=== PATIENT | male | born 1985 | race Caucasian/White ===

== ENCOUNTER → 2016-09-08 | Emergency (ER) | payer MEDICARE, MEDICAID ==
[~2016-09-08] VITALS: Ht 175.3 cm; Wt 68.0 kg
[~2016-09-08] MED LIST: CALCIUM CARBONATE VITAMIN D PO; CLINDAMYCIN 900MG IV 50 ML IV ONE; HYDROmorphone HCL 2 MG/ML VL IV ONE; IOHEXOL 300 MG/ML 100ML BOTTLE IJ ONE; MES400T PO; OMEP20CA5 OR; ONDANSETRON HCL 4 MG/2 ML VIAL IV ONE; PERCOT; PRED-188 PO; SODIUM CHLORIDE 0.9% 1,000 ML IVB ONE
[2016-09-08 13:09] LABS: Basophils # (auto) 0.1 uL; Basophils % (auto) 1.3 % (0.0-2.0); DEFINITIVE VIEW TRANSMISSION; Eosinophils # (auto) 0.2 uL; Eosinophils % (auto) 1.4 % (0.0-7.0); Hematocrit 33.4 % (41.0-53.0); Hemoglobin 9.8 g/dL (13.5-17.5); Lymphocytes # (auto) 1.2 uL; Mean Corpuscular Hemoglobin 20.3 pg (28.0-32.0); Mean Corpuscular Hgb Conc. 29.4 g/dL (32.0-36.0); Mean Corpuscular Volume 69.1 fL (80.0-100.0); Mean Platelet Volume 8.5 fL (7.4-10.4); Monocytes # (auto) 0.4 uL; Monocytes % (auto) 3.7 % (0.0-12.0); Neutrophils # (auto) 9.1 uL; Neutrophils % (auto) 82.6 % (37.0-80.0); Platelet Count (auto) 410 10^3/uL (140-450); Red Cell Distribution Width 15.3 % (11.6-16.0)
[2016-09-08 13:18] LABS: INR 1.04 (0.9-1.15); Partial Thromboplastin Time 25.4 sec (22.64-33.71); Prothrombin Time 10.7 sec (9.37-12.3)
[2016-09-08 13:28] LABS: Albumin 3.4 g/dL (3.4-5.0); BUN/Creatinine Ratio 23.2; Bilirubin, Total 0.3 mg/dL (0.2-1.0); Calcium 8.8 mg/dL (8.5-10.1); Magnesium 1.9 mg/dL (1.6-2.6); Potassium 3.8 mmol/L (3.5-5.1)
[2016-09-08 17:37] VITALS: BP 116/70
== END | disposition home or self-care (01) ==
LOC: ER 12:08
DX: L02.211 Cutaneous abscess of abdominal wall (principal); K51.90 Ulcerative colitis, unspecified, without complications; M19.90 Unspecified osteoarthritis, unspecified site; F17.210 Nicotine dependence, cigarettes, uncomplicated; F12.10 Cannabis abuse, uncomplicated; Z88.1 Allergy status to other antibiotic agents; Z79.899 Other long term (current) drug therapy
CPT/HCPCS: 36415; 74177; 80053; 82150; 83690; 83735; 85025; 85610; 85730; 96361; 96365; 96375; 99285; J1170; J2405; J3490; J7030; Q9967

== ENCOUNTER 2018-02-24 17:29 | Inpatient (IN) | payer MEDICARE, MEDICAID ==
[~2018-02-24] VITALS: Ht 175.3 cm; Wt 69.2 kg
[~2018-02-24 17:29] MED LIST changes: -CLINDAMYCIN 900MG IV 50 ML IV ONE; -HYDROmorphone HCL 2 MG/ML VL IV ONE; -IOHEXOL 300 MG/ML 100ML BOTTLE IJ ONE; -OMEP20CA5 OR; +OMEP20CA74 OR; -ONDANSETRON HCL 4 MG/2 ML VIAL IV ONE; -SODIUM CHLORIDE 0.9% 1,000 ML IVB ONE
[2018-02-24] MEDS ORDERED: SODIUM CHLORIDE 0.9% 1,000 ML IVB ONE (17:55)
[2018-02-24 18:41] LABS: Eosinophils # (auto) 0.1 uL; Eosinophils % (auto) 0.7 % (0.0-7.0); Red Blood Cells 4.22 10^6/uL (4.5-5.90)
[2018-02-24 18:42] LABS: Basophils # (auto) 0.1 uL; Basophils % (auto) 0.6 % (0.0-2.0); Hematocrit 29.3 % (41.0-53.0); Hemoglobin 8.9 g/dL (13.5-17.5); Lymphocytes # (auto) 1.5 uL; Lymphocytes % (auto) 17.2 % (10.0-50.0); Mean Corpuscular Hemoglobin 21.2 pg (28.0-32.0); Mean Corpuscular Hgb Conc. 30.5 g/dL (32.0-36.0); Mean Corpuscular Volume 69.4 fL (80.0-100.0); Monocytes # (auto) 0.7 uL; Monocytes % (auto) 8.2 % (0.0-12.0); Neutrophils # (auto) 6.4 uL; Neutrophils % (auto) 73.3 % (37.0-80.0); Platelet Count (auto) 361 10^3/uL (140-450); Red Cell Distribution Width 18.1 % (11.8-14.3); White Blood Cell 8.7 10^3/uL (4.4-10.8)
[2018-02-24 18:57] LABS: INR 0.99 (0.9-1.15); Partial Thromboplastin Time 30.8 sec (23.78-33.04); Prothrombin Time 10.6 sec (9.27-12.13)
[2018-02-24 19:01] LABS: Albumin 3.1 g/dL (3.4-5.0); BUN/Creatinine Ratio 12.9; Calcium 7.8 mg/dL (8.5-10.1); Potassium 3.5 mmol/L (3.5-5.1)
[2018-02-24 19:03] LABS: Bilirubin, Total 0.6 mg/dL (0.2-1.0); Total Protein 7.2 g/dL (6.4-8.2)
[2018-02-24] MEDS ORDERED: TEMAZEPAM 15 MG CAP PO PRN (21:15)
[2018-02-24] MEDS ORDERED: ACETAMINOPHEN 325 MG TAB PO PRN (21:15)
[2018-02-24] MEDS: MORPHINE SULFATE 4 MG/ML SYR/VIAL IV PRN (22:03)
[2018-02-24] MEDS: MESALAMINE 400mg Delayed Release Cap PO SCH (22:06)
[2018-02-24] MEDS ORDERED: CALAMINE TOPical LOTION180 ML TOP ONE (22:15)
[2018-02-25] MEDS: HYDROcodone-ACET 5/325MG TAB PO PRN (00:46)
[2018-02-25] MEDS: ONDANSETRON HCL 4 MG/2 ML VIAL IV PRN ×4 (05:39→21:03)
[2018-02-25] MEDS: MORPHINE SULFATE 4 MG/ML SYR/VIAL IV PRN ×4 (05:39→21:02)
[2018-02-25 07:35] LABS: Basophils # (auto) 0.1 uL; Basophils % (auto) 0.7 % (0.0-2.0); Eosinophils # (auto) 0.2 uL; Eosinophils % (auto) 2.6 % (0.0-7.0); Hematocrit 34.7 % (41.0-53.0); Hemoglobin 9.6 g/dL (13.5-17.5); Lymphocytes # (auto) 1.2 uL; Lymphocytes % (auto) 16.6 % (10.0-50.0); Mean Corpuscular Hemoglobin 20.6 pg (28.0-32.0); Mean Corpuscular Hgb Conc. 27.7 g/dL (32.0-36.0); Mean Corpuscular Volume 74.3 fL (80.0-100.0); Monocytes # (auto) 0.7 uL; Monocytes % (auto) 9.1 % (0.0-12.0); Neutrophils # (auto) 5.3 uL; Platelet Count (auto) 352 10^3/uL (140-450); Red Blood Cells 4.67 10^6/uL (4.5-5.90); White Blood Cell 7.4 10^3/uL (4.4-10.8)
[2018-02-25 07:59] LABS: Albumin 2.9 g/dL (3.4-5.0); BUN/Creatinine Ratio 12.8; Bilirubin, Total 0.5 mg/dL (0.2-1.0); Potassium 3.8 mmol/L (3.5-5.1); Total Protein 7.1 g/dL (6.4-8.2)
[2018-02-25] MEDS: predniSONE 20 MG TAB PO SCH (10:29)
[2018-02-25] MEDS: MESALAMINE 400mg Delayed Release Cap PO SCH ×2 (10:29→23:55)
[2018-02-25] MEDS: PANTOPRAZOLE 40 MG TAB PO SCH (10:29)
[2018-02-25 14:55] VITALS: BP 131/86
[2018-02-25] MEDS: metroNIDAZOLE 500 MG TAB PO SCH (18:04)
[2018-02-25 22:00] VITALS: BP 133/79
[2018-02-25] MEDS: SILVER SULFADIAZINE 1 % TOPICAL CREAM 50GM TOP SCH (23:56)
[2018-02-26] MEDS: metroNIDAZOLE 500 MG TAB PO SCH ×5 (00:04→23:46)
[2018-02-26] MEDS: ONDANSETRON HCL 4 MG/2 ML VIAL IV PRN ×3 (04:26→20:40)
[2018-02-26] MEDS: MORPHINE SULFATE 4 MG/ML SYR/VIAL IV PRN ×2 (04:27→10:06)
[2018-02-26 05:15] VITALS: BP 131/78
[2018-02-26 07:00] LABS: Basophils # (auto) 0 uL; Eosinophils # (auto) 0 uL; Eosinophils % (auto) 0.3 % (0.0-7.0); Hematocrit 30.8 % (41.0-53.0); Hemoglobin 9.4 g/dL (13.5-17.5); Lymphocytes # (auto) 1.2 uL; Mean Corpuscular Hemoglobin 21.3 pg (28.0-32.0); Monocytes # (auto) 0.8 uL
[2018-02-26 07:03] LABS: Basophils % (auto) 0.1 % (0.0-2.0); Lymphocytes % (auto) 11.3 % (10.0-50.0); Mean Corpuscular Hgb Conc. 30.5 g/dL (32.0-36.0); Mean Corpuscular Volume 69.8 fL (80.0-100.0); Monocytes % (auto) 7.8 % (0.0-12.0); Neutrophils # (auto) 8.3 uL; Neutrophils % (auto) 80.5 % (37.0-80.0); Platelet Count (auto) 339 10^3/uL (140-450); Red Blood Cells 4.41 10^6/uL (4.5-5.90); Red Cell Distribution Width 18.1 % (11.8-14.3); White Blood Cell 10.3 10^3/uL (4.4-10.8)
[2018-02-26 07:13] LABS: BUN/Creatinine Ratio 14.8; Calcium 8.2 mg/dL (8.5-10.1); Potassium 3.8 mmol/L (3.5-5.1)
[2018-02-26 08:01] VITALS: BP 126/73
[2018-02-26] MEDS ORDERED: ONDANSETRON HCL 4 MG/2 ML VIAL ONE (09:37)
[2018-02-26] MEDS ORDERED: MORPHINE SULF INJ 2 MG/ML SYRINGE 1ML ONE (09:43)
[2018-02-26] MEDS: predniSONE 20 MG TAB PO SCH (10:03)
[2018-02-26] MEDS: PANTOPRAZOLE 40 MG TAB PO SCH (10:04)
[2018-02-26] MEDS: SILVER SULFADIAZINE 1 % TOPICAL CREAM 50GM TOP SCH ×2 (10:05→22:09)
[2018-02-26] MEDS: MESALAMINE 400mg Delayed Release Cap PO SCH ×2 (10:25→22:09)
[2018-02-26 11:59] VITALS: BP 127/84
[2018-02-26] MEDS: MORPHINE SULF INJ 2 MG/ML SYRINGE 1ML IV PRN ×2 (15:40→20:40)
[2018-02-26 16:24] VITALS: BP 129/83
[2018-02-26 22:00] VITALS: BP 131/72
[2018-02-27] MEDS: MORPHINE SULF INJ 2 MG/ML SYRINGE 1ML IV PRN ×3 (00:57→11:37)
[2018-02-27 05:00] VITALS: BP 125/67
[2018-02-27] MEDS: metroNIDAZOLE 500 MG TAB PO SCH ×3 (05:31→18:00)
[2018-02-27 08:42] VITALS: BP 139/79
[2018-02-27] MEDS: HYDROcodone-ACET 5/325MG TAB PO PRN ×2 (08:47→15:31)
[2018-02-27] MEDS: predniSONE 20 MG TAB PO SCH (11:20)
[2018-02-27] MEDS: MESALAMINE 400mg Delayed Release Cap PO SCH (11:20)
[2018-02-27] MEDS: PANTOPRAZOLE 40 MG TAB PO SCH (11:21)
[2018-02-27] MEDS: SILVER SULFADIAZINE 1 % TOPICAL CREAM 50GM TOP SCH (11:21)
[2018-02-27] MEDS ORDERED: PANT40T PO (11:26)
[2018-02-27] MEDS ORDERED: PRE5T PO (11:26)
[2018-02-27] MEDS ORDERED: MESA400C PO (11:26)
[2018-02-27 12:28] VITALS: BP 128/71
[2018-02-27 16:44] VITALS: BP 128/71
== END 2018-02-27 19:25 | disposition home or self-care (01) | DRG 386 ==
LOC: ER 17:29 → EDBD 17:29 → OVERFLOW 17:30 → EAST 02-25 14:46
PROVIDERS: ADMIT Nurse Practitioner; ATTEND Internal Medicine
DX: K51.90 Ulcerative colitis, unspecified, without complications (principal); E44.1 Mild protein-calorie malnutrition; D63.8 Anemia in other chronic diseases classified elsewhere; F17.210 Nicotine dependence, cigarettes, uncomplicated; F32.9 Major depressive disorder, single episode, unspecified; F41.9 Anxiety disorder, unspecified; K43.5 Parastomal hernia without obstruction or gangrene; Z82.49 Family history of ischemic heart disease and other diseases of the circulatory system; Z83.3 Family history of diabetes mellitus; Z87.442 Personal history of urinary calculi; Z90.49 Acquired absence of other specified parts of digestive tract; Z91.19 Patient's noncompliance with other medical treatment and regimen; Z93.3 Colostomy status; M19.90 Unspecified osteoarthritis, unspecified site; Z71.6 Tobacco abuse counseling; Z88.1 Allergy status to other antibiotic agents
CPT/HCPCS: 36415; 71045; 74176; 80048; 80053; 83735; 85025; 85610; 85730; 86141; 87045; 87081; 87493; 87899; 94761; 96360; J2405

== ENCOUNTER 2018-03-31 06:25 | Emergency (ER) | payer MEDICARE, MEDICAID ==
[~2018-03-31] VITALS: Ht 175.3 cm; Wt 65.8 kg
[~2018-03-31 06:25] MED LIST changes: +MESA400C PO; +PANT40T PO; +PRE5T PO
[2018-03-31] MEDS ORDERED: SODIUM CHLORIDE 0.9% 1,000 ML IV ONE (07:08)
[2018-03-31] MEDS ORDERED: ONDANSETRON HCL 4 MG/2 ML VIAL IV ONE (07:15)
[2018-03-31] MEDS ORDERED: TETANUS-DIPTH-ACEL PERTUSSIS 0.5ML SYRG IM ONE (07:15)
[2018-03-31] MEDS ORDERED: KETOROLAC TROMETH 30 MG/ML 1ML VIAL IV ONE (07:15)
[2018-03-31 07:43] LABS: Basophils # (auto) 0.1 uL; Eosinophils # (auto) 0.1 uL; Hematocrit 30.1 % (41.0-53.0); Neutrophils # (auto) 5.4 uL; White Blood Cell 7.2 10^3/uL (4.4-10.8)
[2018-03-31 07:46] LABS: Basophils % (auto) 0.7 % (0.0-2.0); Eosinophils % (auto) 1.8 % (0.0-7.0); Hemoglobin 9.1 g/dL (13.5-17.5); Lymphocytes # (auto) 0.8 uL; Lymphocytes % (auto) 11.7 % (10.0-50.0); Mean Corpuscular Hemoglobin 21.1 pg (28.0-32.0); Mean Corpuscular Hgb Conc. 30.2 g/dL (32.0-36.0); Mean Corpuscular Volume 69.9 fL (80.0-100.0); Monocytes # (auto) 0.8 uL; Monocytes % (auto) 10.7 % (0.0-12.0); Neutrophils % (auto) 75.1 % (37.0-80.0); Red Cell Distribution Width 17.2 % (11.8-14.3)
[2018-03-31 08:00] LABS: Albumin 2.9 g/dL (3.4-5.0); BUN/Creatinine Ratio 16.3; Potassium 3.5 mmol/L (3.5-5.1)
[2018-03-31 08:03] LABS: Bilirubin, Total 0.6 mg/dL (0.2-1.0); Total Protein 6.8 g/dL (6.4-8.2)
[2018-03-31 08:09] LABS: Platelet Count (auto) 274 10^3/uL (140-450)
[2018-03-31 08:38] VITALS: BP 135/88
== END 2018-03-31 08:56 | disposition home or self-care (01) ==
LOC: EDBD 06:25 → ER 06:30
DX: S02.2XXA Fracture of nasal bones, initial encounter for closed fracture (principal); S02.652A Fracture of angle of left mandible, initial encounter for closed fracture; S06.9X0A Unspecified intracranial injury without loss of consciousness, initial encounter; M19.90 Unspecified osteoarthritis, unspecified site; F17.210 Nicotine dependence, cigarettes, uncomplicated; R51 Headache; Y04.2XXA Assault by strike against or bumped into by another person, initial encounter; Y93.89 Activity, other specified; Y92.89 Other specified places as the place of occurrence of the external cause; Y99.8 Other external cause status
CPT/HCPCS: 36415; 70486; 80053; 83735; 85025; 96374; 96375; 99285; J1885; J2405; J7030; 90715

== ENCOUNTER 2018-04-01 09:36 | Emergency (ER) | payer MEDICARE, MEDICAID ==
[~2018-04-01] VITALS: Ht 172.7 cm; Wt 65.8 kg
[2018-04-01 11:25] VITALS: BP 134/82
== END 2018-04-01 12:04 | disposition home or self-care (01) ==
LOC: ER 09:36
DX: Z46.89 Encounter for fitting and adjustment of other specified devices (principal); M19.90 Unspecified osteoarthritis, unspecified site; F17.210 Nicotine dependence, cigarettes, uncomplicated; F12.10 Cannabis abuse, uncomplicated; F41.9 Anxiety disorder, unspecified; F32.9 Major depressive disorder, single episode, unspecified; Z87.442 Personal history of urinary calculi; Z88.1 Allergy status to other antibiotic agents

== ENCOUNTER 2018-04-19 02:22 | Emergency (ER) | payer MEDICARE, MEDICAID ==
[~2018-04-19] VITALS: Ht 172.7 cm; Wt 68.0 kg
[2018-04-19] MEDS ORDERED: KETOROLAC TROMETH 30 MG/ML 1ML VIAL IV ONE (03:00)
[2018-04-19] MEDS ORDERED: IOHEXOL 300 MG/ML 100ML BOTTLE IJ ONE (03:00)
[2018-04-19 04:05] LABS: Basophils # (auto) 0.1 uL; Hemoglobin 8.2 g/dL (13.5-17.5); Lymphocytes # (auto) 1.4 uL; Neutrophils # (auto) 5.6 uL; Red Cell Distribution Width 17.2 % (11.8-14.3); White Blood Cell 8.1 10^3/uL (4.4-10.8)
[2018-04-19 04:09] LABS: Basophils % (auto) 0.7 % (0.0-2.0); Eosinophils # (auto) 0.1 uL; Eosinophils % (auto) 1.6 % (0.0-7.0); Hematocrit 26.5 % (41.0-53.0); Lymphocytes % (auto) 16.7 % (10.0-50.0); Mean Corpuscular Hemoglobin 21.2 pg (28.0-32.0); Mean Corpuscular Hgb Conc. 30.8 g/dL (32.0-36.0); Monocytes % (auto) 12.2 % (0.0-12.0); Neutrophils % (auto) 68.8 % (37.0-80.0); Platelet Count (auto) 365 10^3/uL (140-450); Red Blood Cells 3.85 10^6/uL (4.5-5.90)
[2018-04-19 04:24] LABS: Albumin 2.9 g/dL (3.4-5.0); BUN/Creatinine Ratio 26.7; Calcium 8.2 mg/dL (8.5-10.1); Potassium 3.8 mmol/L (3.5-5.1)
[2018-04-19 04:26] LABS: Bilirubin, Total 0.3 mg/dL (0.2-1.0)
[2018-04-19 11:52] LABS: Urine Bacteria FEW /hpf (None Seen); Urine Blood Negative /uL (Negative); Urine Mucus FEW (None Seen); Urine WBC 2 /hpf (0 - 3)
[2018-04-19 12:00] LABS: Urine Specific Gravity > 1.050 (1.001-1.035)
[2018-04-19 12:09] LABS: Amphetamine Screen, Urine POSITIVE (NEGATIVE); Barbiturate Scree,Urine NEGATIVE (NEGATIVE); Benzodiazephine Screen, Urine POSITIVE (NEGATIVE); Cannabinoid Screen, Urine POSITIVE (NEGATIVE); Cocaine Screen, Urine NEGATIVE (NEGATIVE); Opiate Scree,Urine NEGATIVE (NEGATIVE); Phencyclidine Screen, Urine NEGATIVE (NEGATIVE)
[2018-04-19 12:35] VITALS: BP 129/64
== END 2018-04-19 12:49 | disposition short-term general hospital (02) ==
LOC: EDBD 02:22 → ER 02:27
DX: T81.4XXA Infection following a procedure, initial encounter (principal); K65.1 Peritoneal abscess; F17.210 Nicotine dependence, cigarettes, uncomplicated; F12.10 Cannabis abuse, uncomplicated; M19.90 Unspecified osteoarthritis, unspecified site; Z88.1 Allergy status to other antibiotic agents; Z87.442 Personal history of urinary calculi
CPT/HCPCS: 36415; 74177; 80053; 80307; 81001; 82150; 83690; 85025; 96374; 99285; J1885; Q9967

== ENCOUNTER 2018-05-30 04:45 | Emergency (ER) | payer MEDICARE, MEDICAID ==
[~2018-05-30] VITALS: Ht 172.7 cm; Wt 54.4 kg
[2018-05-30] MEDS ORDERED: SODIUM CHLORIDE 0.9% 1,000 ML IVB ONE (07:07)
[2018-05-30 07:32] LABS: Basophils # (auto) 0 uL; Eosinophils # (auto) 0.1 uL; Lymphocytes # (auto) 0.6 uL; Monocytes # (auto) 0.7 uL
[2018-05-30 07:34] LABS: Basophils % (auto) 0.7 % (0.0-2.0); Eosinophils % (auto) 1.2 % (0.0-7.0); Hematocrit 33.1 % (41.0-53.0); Lymphocytes % (auto) 12.7 % (10.0-50.0); Mean Corpuscular Hemoglobin 21.1 pg (28.0-32.0); Mean Corpuscular Hgb Conc. 30.2 g/dL (32.0-36.0); Mean Corpuscular Volume 69.7 fL (80.0-100.0); Monocytes % (auto) 15.3 % (0.0-12.0); Neutrophils # (auto) 3.2 uL; Neutrophils % (auto) 70.1 % (37.0-80.0); Platelet Count (auto) 287 10^3/uL (140-450); Red Blood Cells 4.75 10^6/uL (4.5-5.90); Red Cell Distribution Width 17.7 % (11.8-14.3); White Blood Cell 4.6 10^3/uL (4.4-10.8)
[2018-05-30 08:03] LABS: Albumin 3.3 g/dL (3.4-5.0); BUN/Creatinine Ratio 9.9; Calcium 8.4 mg/dL (8.5-10.1); Magnesium 2.2 mg/dL (1.6-2.6); Potassium 3.7 mmol/L (3.5-5.1)
[2018-05-30 08:11] LABS: Bilirubin, Total 0.5 mg/dL (0.2-1.0); Total Protein 7.7 g/dL (6.4-8.2)
[2018-05-30 09:29] LABS: Urine Bacteria NONE SEEN /hpf (None Seen); Urine Blood Negative /uL (Negative); Urine Mucus FEW (None Seen); Urine Specific Gravity 1.019 (1.001-1.035); Urine WBC 1 /hpf (0 - 3)
[2018-05-30 11:30] VITALS: BP 142/67
== END 2018-05-30 11:31 | disposition home or self-care (01) ==
LOC: EDBD 04:45 → ER 04:45
DX: K50.90 Crohn's disease, unspecified, without complications (principal); E46 Unspecified protein-calorie malnutrition; R09.81 Nasal congestion; D64.9 Anemia, unspecified; M19.90 Unspecified osteoarthritis, unspecified site; K21.9 Gastro-esophageal reflux disease without esophagitis; N20.0 Calculus of kidney; F12.10 Cannabis abuse, uncomplicated; Z43.3 Encounter for attention to colostomy; Z88.1 Allergy status to other antibiotic agents
CPT/HCPCS: 36415; 71045; 74176; 80053; 81001; 83690; 83735; 84443; 85025; 99285; J7030

== ENCOUNTER 2018-05-31 20:29 | Inpatient (IN) | payer MEDICARE, MEDICAID ==
[~2018-05-31] VITALS: Ht 162.6 cm; Wt 69.6 kg
[2018-05-31 22:01] LABS: Basophils # (auto) 0 uL; Monocytes # (auto) 0.6 uL; Red Cell Distribution Width 17.7 % (11.8-14.3)
[2018-05-31 22:03] LABS: Basophils % (auto) 0.5 % (0.0-2.0); Eosinophils # (auto) 0.1 uL; Eosinophils % (auto) 1.1 % (0.0-7.0); Hematocrit 33.6 % (41.0-53.0); Hemoglobin 10.1 g/dL (13.5-17.5); Lymphocytes # (auto) 1.1 uL; Lymphocytes % (auto) 21.2 % (10.0-50.0); Mean Corpuscular Hemoglobin 21.1 pg (28.0-32.0); Mean Corpuscular Hgb Conc. 30.1 g/dL (32.0-36.0); Mean Corpuscular Volume 69.9 fL (80.0-100.0); Monocytes % (auto) 12.8 % (0.0-12.0); Neutrophils # (auto) 3.2 uL; Neutrophils % (auto) 64.4 % (37.0-80.0); Nucleated Red Blood Cells % 0.1 %; Platelet Count (auto) 301 10^3/uL (140-450); Red Blood Cells 4.81 10^6/uL (4.5-5.90)
[2018-05-31 22:20] LABS: Albumin 3.5 g/dL (3.4-5.0); BUN/Creatinine Ratio 13.3; Calcium 8.7 mg/dL (8.5-10.1); Potassium 3.6 mmol/L (3.5-5.1)
[2018-05-31 22:29] LABS: Bilirubin, Total 0.4 mg/dL (0.2-1.0); Total Protein 7.8 g/dL (6.4-8.2)
[2018-06-01] MEDS ORDERED: MORPHINE SULFATE 4 MG/ML SYR/VIAL IV ONE (02:15)
[2018-06-01] MEDS ORDERED: ONDANSETRON HCL 4 MG/2 ML VIAL IV ONE (02:15)
[2018-06-01] MEDS ORDERED: HYDROcodone-ACET 5/325MG TAB PO PRN (05:30)
[2018-06-01] MEDS ORDERED: MORPHINE SULFATE 4 MG/ML SYR/VIAL IV PRN (05:30)
[2018-06-01] MEDS ORDERED: ONDANSETRON HCL 4 MG/2 ML VIAL IV PRN (05:30)
[2018-06-01] MEDS ORDERED: ACETAMINOPHEN 500 MG TAB PO PRN (05:30)
[2018-06-01] MEDS ORDERED: HYDR-4683 PO (06:43)
[2018-06-01] MEDS ORDERED: ZOLP10TA PO (06:44)
[2018-06-01] MEDS: PANTOPRAZOLE 40 MG/10 ML VIAL IV SCH (06:45)
[2018-06-01 07:02] LABS: Basophils # (auto) 0 uL; Eosinophils # (auto) 0.1 uL; Hemoglobin 9.6 g/dL (13.5-17.5); Lymphocytes # (auto) 1.3 uL; Lymphocytes % (auto) 24.9 % (10.0-50.0); Monocytes # (auto) 0.6 uL; Neutrophils # (auto) 3.1 uL; White Blood Cell 5.1 10^3/uL (4.4-10.8)
[2018-06-01 07:05] LABS: Calcium 8.2 mg/dL (8.5-10.1); Potassium 3.7 mmol/L (3.5-5.1)
[2018-06-01 07:06] LABS: Basophils % (auto) 0.4 % (0.0-2.0); Eosinophils % (auto) 1.7 % (0.0-7.0); Hematocrit 31.8 % (41.0-53.0); Mean Corpuscular Hemoglobin 20.9 pg (28.0-32.0); Mean Corpuscular Hgb Conc. 30.2 g/dL (32.0-36.0); Mean Corpuscular Volume 69.3 fL (80.0-100.0); Monocytes % (auto) 12.2 % (0.0-12.0); Neutrophils % (auto) 60.8 % (37.0-80.0); Platelet Count (auto) 271 10^3/uL (140-450); Red Cell Distribution Width 17.4 % (11.8-14.3)
[2018-06-01 08:19] LABS: INR 0.96 (0.9-1.15); Prothrombin Time 10.3 sec (9.27-12.13)
[2018-06-01 08:40] VITALS: BP 113/67
[2018-06-01 09:00] VITALS: BP 113/67
[2018-06-01] MEDS ORDERED: BUSP5TAB51 PO (09:27)
[2018-06-01 13:00] VITALS: BP 126/62
[2018-06-01 14:21] LABS: Urine Bacteria NONE SEEN /hpf (None Seen); Urine Blood Negative /uL (Negative); Urine Mucus FEW (None Seen); Urine Specific Gravity 1.023 (1.001-1.035); Urine WBC 2 /hpf (0 - 3)
[2018-06-01 14:37] LABS: Alcohol, Urine < 3.0 mg/dL (0-5); Amphetamine Screen, Urine POSITIVE (NEGATIVE); Barbiturate Scree,Urine NEGATIVE (NEGATIVE); Benzodiazephine Screen, Urine NEGATIVE (NEGATIVE); Cannabinoid Screen, Urine POSITIVE (NEGATIVE); Cocaine Screen, Urine NEGATIVE (NEGATIVE); Opiate Scree,Urine POSITIVE (NEGATIVE); Phencyclidine Screen, Urine NEGATIVE (NEGATIVE)
[2018-06-01] MEDS: NICOTINE 21MG/24 HR TOPICAL PATCH TD SCH (14:42)
[2018-06-01] MEDS: MORPHINE SULFATE 4 MG/ML SYR/VIAL IV PRN (14:42)
[2018-06-01 17:00] VITALS: BP 129/77
[2018-06-01 22:00] VITALS: BP_SYST 119; BP_SYST 130; BP_DIAS 65; BP_DIAS 67
[2018-06-01] MEDS: busPIRone HCL 10 MG TAB PO SCH (22:14)
[2018-06-02] MEDS: MORPHINE SULFATE 4 MG/ML SYR/VIAL IV PRN ×2 (00:52→09:00)
[2018-06-02 05:00] VITALS: BP 118/76
[2018-06-02] MEDS: PANTOPRAZOLE 40 MG/10 ML VIAL IV SCH (06:30)
[2018-06-02 07:51] LABS: Hematocrit 33.3 % (41.0-53.0); Hemoglobin 10.2 g/dL (13.5-17.5)
[2018-06-02 08:00] VITALS: BP 123/71
[2018-06-02 08:35] VITALS: BP 123/71
[2018-06-02] MEDS: NICOTINE 21MG/24 HR TOPICAL PATCH TD SCH (08:59)
[2018-06-02] MEDS: busPIRone HCL 10 MG TAB PO SCH (09:00)
[2018-06-02 11:34] VITALS: BP 123/71
[2018-06-02 12:41] VITALS: BP 125/74
[2018-06-02] MEDS ORDERED: Ensure Enlive Chocolate 8oz Bottle PO SCH (18:00)
== END 2018-06-02 16:40 | disposition home or self-care (01) | DRG 920 ==
LOC: ER 20:32 → OVERFLOW 20:33 → CENTRAL 06-01 08:20
PROVIDERS: ADMIT Nurse Practitioner Family; ATTEND Internal Medicine
DX: K91.872 Postprocedural seroma of a digestive system organ or structure following a digestive system procedure (principal); K51.90 Ulcerative colitis, unspecified, without complications; K43.5 Parastomal hernia without obstruction or gangrene; D63.8 Anemia in other chronic diseases classified elsewhere; E86.0 Dehydration; F17.210 Nicotine dependence, cigarettes, uncomplicated; F32.9 Major depressive disorder, single episode, unspecified; F41.9 Anxiety disorder, unspecified; K21.9 Gastro-esophageal reflux disease without esophagitis; M19.90 Unspecified osteoarthritis, unspecified site; Z82.49 Family history of ischemic heart disease and other diseases of the circulatory system; Z83.3 Family history of diabetes mellitus; Z87.442 Personal history of urinary calculi; Z93.3 Colostomy status; Y83.9 Surgical procedure, unspecified as the cause of abnormal reaction of the patient, or of later complication, without mention of misadventure at the time of the procedure
CPT/HCPCS: 36415; 74176; 76705; 80048; 80053; 80307; 81001; 83605; 85014; 85018; 85025; 85610; 87040; 87081; 96374; 96375; C9113; G0378; J2405

== ENCOUNTER 2018-07-14 02:03 | Emergency (ER) | payer MEDICARE, MEDICAID ==
[~2018-07-14] VITALS: Ht 175.3 cm; Wt 65.8 kg
[~2018-07-14 02:03] MED LIST changes: +BUSP5TAB51 PO; +HYDR-4683 PO; -PERCOT; +ZOLP10TA PO
[2018-07-14] MEDS ORDERED: SODIUM CHLORIDE 0.9% 1,000 ML IVB ONE ×2 (03:37→07:33)
[2018-07-14 05:11] LABS: Basophils # (auto) 0 uL; Eosinophils # (auto) 0.1 uL; Lymphocytes # (auto) 0.7 uL; Mean Corpuscular Volume 70.1 fL (80.0-100.0); Monocytes # (auto) 0.6 uL; White Blood Cell 5.6 10^3/uL (4.4-10.8)
[2018-07-14 05:15] LABS: Basophils % (auto) 0.7 % (0.0-2.0); Eosinophils % (auto) 1.7 % (0.0-7.0); Hematocrit 36.5 % (41.0-53.0); Hemoglobin 11.2 g/dL (13.5-17.5); Lymphocytes % (auto) 13.4 % (10.0-50.0); Mean Corpuscular Hemoglobin 21.5 pg (28.0-32.0); Mean Corpuscular Hgb Conc. 30.6 g/dL (32.0-36.0); Monocytes % (auto) 10.2 % (0.0-12.0); Neutrophils # (auto) 4.1 uL; Nucleated Red Blood Cells % 0.2 %; Platelet Count (auto) 257 10^3/uL (140-450); Red Blood Cells 5.21 10^6/uL (4.5-5.90); Red Cell Distribution Width 18.8 % (11.8-14.3)
[2018-07-14 05:36] LABS: Alanine Aminotransferase 35 U/L (16-61); Albumin 3.3 g/dL (3.4-5.0); Anion Gap 8 (5-15); Aspartate Aminotransferase 66 U/L (15-37); BUN/Creatinine Ratio 26.4; Blood Alcohol < 3.0 mg/dL (0-5); Blood Urea Nitrogen 19 mg/dL (7-18); Calcium 8.3 mg/dL (8.5-10.1); Carbon Dioxide 22 mmol/L (21-32); Chloride 105 mmol/L (98-107); GFR African American 160 mL/min; GFR Non-African American 132 mL/min; Glucose 85 mg/dL (74-106); Potassium 4.9 mmol/L (3.5-5.1); Sodium 135 mmol/L (136-145)
[2018-07-14 05:39] LABS: Alkaline Phosphatase 81 U/L (45-117); Bilirubin, Total 0.5 mg/dL (0.2-1.0); Total Protein 7.9 g/dL (6.4-8.2)
[2018-07-14] MEDS ORDERED: PROMETHAZINE HCL 25 MG/ML 1ML IV PRN (07:45)
[2018-07-14] MEDS ORDERED: KETOROLAC TROMETH 30 MG/ML 1ML VIAL IV ONE (07:45)
[2018-07-14 09:00] VITALS: BP 132/86
[2018-07-14 18:13] LABS: Urine WBC None Seen /hpf (0 - 3)
[2018-07-14 18:37] LABS: Urine Amorphous Crystal MOD /hpf (None Seen); Urine Bacteria NONE SEEN /hpf (None Seen); Urine Blood Negative /uL (Negative); Urine Mucus FEW (None Seen); Urine Specific Gravity 1.032 (1.001-1.035)
[2018-07-14 18:56] LABS: Alcohol, Urine < 3.0 mg/dL (0-5); Amphetamine Screen, Urine POSITIVE (NEGATIVE); Barbiturate Scree,Urine NEGATIVE (NEGATIVE); Benzodiazephine Screen, Urine NEGATIVE (NEGATIVE); Cannabinoid Screen, Urine POSITIVE (NEGATIVE); Cocaine Screen, Urine NEGATIVE (NEGATIVE); Opiate Scree,Urine NEGATIVE (NEGATIVE); Phencyclidine Screen, Urine NEGATIVE (NEGATIVE)
[2018-07-15] MEDS ORDERED: PRE5T PO (14:42)
== END 2018-07-14 13:22 | disposition home or self-care (01) ==
LOC: EDBD 02:03 → ER 02:03
DX: R10.9 Unspecified abdominal pain (principal); E46 Unspecified protein-calorie malnutrition; K21.9 Gastro-esophageal reflux disease without esophagitis; M19.90 Unspecified osteoarthritis, unspecified site; F17.210 Nicotine dependence, cigarettes, uncomplicated; F12.10 Cannabis abuse, uncomplicated; F41.9 Anxiety disorder, unspecified; F32.9 Major depressive disorder, single episode, unspecified; K50.90 Crohn's disease, unspecified, without complications; Z93.3 Colostomy status; Z88.1 Allergy status to other antibiotic agents; Z68.21 Body mass index [BMI] 21.0-21.9, adult
CPT/HCPCS: 36415; 80053; 80307; 80320; 81001; 83690; 83735; 85025; J1885

== ENCOUNTER 2018-08-08 15:32 | Emergency (ER) | payer MEDICARE, MEDICAID ==
[~2018-08-08] VITALS: Ht 172.7 cm; Wt 65.8 kg
[~2018-08-08 15:32] MED LIST changes: -CALCIUM CARBONATE VITAMIN D PO; -MESA400C PO; -PRED-188 PO
[2018-08-08 15:46] VITALS: BP 140/83
[2018-08-08] MEDS ORDERED: KETOROLAC TROMETH 60MG/2ML VIAL IM ONE (17:15)
== END 2018-08-08 18:00 | disposition home or self-care (01) ==
LOC: ER 15:37
DX: R51 Headache (principal); F17.210 Nicotine dependence, cigarettes, uncomplicated; F12.10 Cannabis abuse, uncomplicated; F41.9 Anxiety disorder, unspecified; F32.9 Major depressive disorder, single episode, unspecified; K21.9 Gastro-esophageal reflux disease without esophagitis; Z87.442 Personal history of urinary calculi
CPT/HCPCS: 70450; 96372; 99284; J1885

== ENCOUNTER 2019-08-12 03:00 | Emergency (ER) | payer MEDICAID, OTHER ==
[~2019-08-12] VITALS: Ht 175.3 cm; Wt 65.8 kg
[~2019-08-12 03:00] MED LIST changes: -HYDR-4683 PO; +HYDR-4833 PO
[2019-08-12 03:15] VITALS: BP 149/86
== END 2019-08-12 06:29 | disposition left against medical advice (07) ==
LOC: EDBD 03:00 → ER 03:07
DX: R21 Rash and other nonspecific skin eruption (principal); Z53.21 Procedure and treatment not carried out due to patient leaving prior to being seen by health care provider

== ENCOUNTER 2019-08-12 10:25 | Emergency (ER) | payer OTHER ==
[~2019-08-12] VITALS: Ht 175.3 cm; Wt 65.8 kg
[2019-08-12 10:34] VITALS: BP 123/83
== END 2019-08-12 10:51 | disposition home or self-care (01) ==
LOC: ER 10:25
DX: L03.211 Cellulitis of face (principal); K51.90 Ulcerative colitis, unspecified, without complications; F17.210 Nicotine dependence, cigarettes, uncomplicated; F12.10 Cannabis abuse, uncomplicated; Z88.1 Allergy status to other antibiotic agents

== ENCOUNTER 2019-08-15 06:46 | Emergency (ER) | payer OTHER ==
[~2019-08-15] VITALS: Ht 175.3 cm; Wt 65.8 kg
[2019-08-15 07:27] LABS: Eosinophils # (auto) 0.1 uL; Lymphocytes # (auto) 1.3 uL; Lymphocytes % (auto) 11.8 % (10.0-50.0); Neutrophils # (auto) 9.1 uL; White Blood Cell 11.2 10^3/uL (4.4-10.8)
[2019-08-15 07:29] LABS: Basophils # (auto) 0 uL; Basophils % (auto) 0.4 % (0.0-2.0); Eosinophils % (auto) 0.9 % (0.0-7.0); Hematocrit 36.6 % (41.0-53.0); Hemoglobin 11.3 g/dL (13.5-17.5); Mean Corpuscular Hemoglobin 22.6 pg (28.0-32.0); Mean Corpuscular Hgb Conc. 30.8 g/dL (32.0-36.0); Mean Corpuscular Volume 73.4 fL (80.0-100.0); Monocytes # (auto) 0.6 uL; Monocytes % (auto) 5.6 % (0.0-12.0); Neutrophils % (auto) 81.3 % (37.0-80.0); Platelet Count (auto) 334 10^3/uL (140-450); Red Blood Cells 4.99 10^6/uL (4.5-5.90); Red Cell Distribution Width 15.8 % (11.8-14.3)
[2019-08-15 07:50] LABS: Albumin 3.4 g/dL (3.4-5.0); Calcium 9.1 mg/dL (8.5-10.1)
[2019-08-15 07:55] LABS: BUN/Creatinine Ratio 8.3; Bilirubin, Total 0.6 mg/dL (0.2-1.0); Total Protein 8.6 g/dL (6.4-8.2)
[2019-08-15 09:24] VITALS: BP 113/59
[2019-08-15] MEDS ORDERED: cefTRIAXone 1GM/50ML D5W 50 ML IV ONE (10:00)
[2019-08-15] MEDS ORDERED: CLINDAMYCIN 600MG IV 50 ML IV ONE (10:15)
== END 2019-08-15 12:38 | disposition home or self-care (01) ==
LOC: ER 06:46
DX: L03.116 Cellulitis of left lower limb (principal); D72.829 Elevated white blood cell count, unspecified; K21.9 Gastro-esophageal reflux disease without esophagitis; F17.210 Nicotine dependence, cigarettes, uncomplicated; Z88.1 Allergy status to other antibiotic agents; Z79.899 Other long term (current) drug therapy
CPT/HCPCS: 36415; 80053; 85025; 96365; 96368; 99283; J0696; J3490

== ENCOUNTER 2019-08-16 08:22 | Emergency (ER) | payer OTHER ==
[~2019-08-16] VITALS: Ht 175.3 cm; Wt 65.8 kg
[2019-08-16 09:58] VITALS: BP 120/78
== END 2019-08-16 10:41 | disposition home or self-care (01) ==
LOC: ER 08:22
DX: T81.49XA Infection following a procedure, other surgical site, initial encounter (principal); M19.90 Unspecified osteoarthritis, unspecified site; K21.9 Gastro-esophageal reflux disease without esophagitis; F17.210 Nicotine dependence, cigarettes, uncomplicated; Z88.1 Allergy status to other antibiotic agents; Y83.9 Surgical procedure, unspecified as the cause of abnormal reaction of the patient, or of later complication, without mention of misadventure at the time of the procedure; Y92.89 Other specified places as the place of occurrence of the external cause

== ENCOUNTER → 2019-10-19 | Emergency (ER) | payer OTHER ==
[~2019-10-19] VITALS: Ht 175.3 cm; Wt 65.8 kg
[2019-10-19 08:41] VITALS: BP 130/80
== END | disposition home or self-care (01) ==
LOC: EDUNIT# 07:39 → EDBD 07:49 → ER 07:49
DX: J32.9 Chronic sinusitis, unspecified (principal); K50.90 Crohn's disease, unspecified, without complications; K21.9 Gastro-esophageal reflux disease without esophagitis; F17.210 Nicotine dependence, cigarettes, uncomplicated; Z87.442 Personal history of urinary calculi; Z88.1 Allergy status to other antibiotic agents; Z93.3 Colostomy status
CPT/HCPCS: 71046

== ENCOUNTER 2021-01-09 02:54 | Emergency (ER) | payer MEDICARE, MEDICAID ==
[~2021-01-09] VITALS: Ht 172.7 cm; Wt 68.0 kg
[2021-01-09] MEDS ORDERED: ONDANSETRON ODT 4 MG TAB PO ONE (07:45)
[2021-01-09 07:52] VITALS: BP 121/91
== END 2021-01-09 08:28 | disposition home or self-care (01) ==
LOC: ER 02:54 → EDBD 02:54 → ER 08:21
DX: Z43.3 Encounter for attention to colostomy (principal); A08.4 Viral intestinal infection, unspecified; K21.9 Gastro-esophageal reflux disease without esophagitis; F17.210 Nicotine dependence, cigarettes, uncomplicated; Z86.2 Personal history of diseases of the blood and blood-forming organs and certain disorders involving the immune mechanism; Z79.899 Other long term (current) drug therapy; Z88.1 Allergy status to other antibiotic agents
CPT/HCPCS: 99283; Q0162

== ENCOUNTER 2021-05-01 12:41 | Inpatient (IN) | payer MEDICARE, MEDICAID ==
[~2021-05-01] VITALS: Ht 175.3 cm; Wt 69.7 kg
[2021-05-01 13:21] LABS: Basophils # (auto) 0.1 10 ^3/uL (0-0.2); Basophils % (auto) 0.7 % (0.0-2.0); Eosinophils # (auto) 0.1 10 ^3/uL (0-0.8); Eosinophils % (auto) 1.3 % (0.0-7.0); Hematocrit 49.2 % (41.0-53.0); Hemoglobin 16.1 g/dL (13.5-17.5); Lymphocytes # (auto) 1.1 10 ^3/uL (0.4-5.4); Lymphocytes % (auto) 10.8 % (10.0-50.0); Mean Corpuscular Hemoglobin 28.1 pg (28.0-32.0); Mean Corpuscular Hgb Conc. 32.8 g/dL (32.0-36.0); Mean Corpuscular Volume 85.5 fL (80.0-100.0); Monocytes # (auto) 0.5 10 ^3/uL (0-1.3); Monocytes % (auto) 5.2 % (0.0-12.0); Neutrophils # (auto) 8.6 10 ^3/uL (1.6-8.6); Nucleated Red Blood Cells % 0.1 %; Red Blood Cells 5.75 10^6/uL (4.5-5.90); Red Cell Distribution Width 15.2 % (11.8-14.3); White Blood Cell 10.5 10^3/uL (4.4-10.8)
[2021-05-01] MEDS ORDERED: SODIUM CHLORIDE 0.9% 1,000 ML IVB ONE (13:30)
[2021-05-01] MEDS ORDERED: ONDANSETRON HCL 4 MG/2 ML VIAL IV ONE (13:30)
[2021-05-01] MEDS ORDERED: SODIUM CHLORIDE 0.9% 1,000 ML IV ONE ×2 (13:30→14:15)
[2021-05-01] MEDS ORDERED: MORPHINE SULFATE INJECTION 2 MG/ML SYRG IV ONE ×2 (13:30→14:15)
[2021-05-01 13:45] LABS: Albumin 3.6 g/dL (3.4-5.0); Calcium 9.1 mg/dL (8.5-10.1); Potassium 4.6 mmol/L (3.5-5.1)
[2021-05-01 13:48] LABS: Bilirubin, Total 1.1 mg/dL (0.2-1.0)
[2021-05-01 14:06] LABS: BUN/Creatinine Ratio 6.4
[2021-05-01] MEDS ORDERED: NITROGLYCERIN 0.4 MG SL TAB SL PRN (14:15)
[2021-05-01] MEDS ORDERED: D5W/ SOD CHL 0.9%/KCL 20MEQ 1,000 ML IV SCH (14:15)
[2021-05-01] MEDS ORDERED: cefTRIAXone 1GM/50ML D5W 50 ML IV ONE (14:15)
[2021-05-01] MEDS ORDERED: MORPHINE SULFATE INJECTION 2 MG/ML SYRG IV PRN ×2 (14:15)
[2021-05-01] MEDS ORDERED: fentaNYL CITRATE 100 MCG/2 ML VL ONE (14:29)
[2021-05-01] MEDS ORDERED: MIDAZOLAM HCL 2MG/2ML 2ml VIAL (1mg/ml) ONE (14:29)
[2021-05-01] MEDS ORDERED: HYDROmorphone HCL 2 MG/ML VL ONE (14:34)
[2021-05-01 14:50] LABS: INR 1.03 (0.9-1.15); Partial Thromboplastin Time 35.9 sec (23.6-33.0)
[2021-05-01] MEDS ORDERED: CHLORHEXIDINE 4% TOPICAL soln 118ml TOP ONE (15:09)
[2021-05-01] MEDS ORDERED: POVIDONE IODINE 10 % TOPICAL OINT 30GM TOP ONE (16:43)
[2021-05-01] MEDS ORDERED: HYDROmorphone HCL 2 MG/ML VL IV ONE (17:15)
[2021-05-01] MEDS: POTASSIUM CHLORIDE 40 MEQ in D5W/LACTATED RINGERS 1,000 ML IV SCH (17:55)
[2021-05-01] MEDS ORDERED: MORPHINE SULFATE 4 MG/ML SYR/VIAL IV PRN (18:00)
[2021-05-01] MEDS ORDERED: ONDANSETRON HCL 4 MG/2 ML VIAL IV PRN (18:00)
[2021-05-01] MEDS ORDERED: MIDAZOLAM HCL 2MG/2ML 2ml VIAL (1mg/ml) IV PRN (18:00)
[2021-05-01] MEDS ORDERED: LABETALOL HCL 5 MG/ML 4ML SYRINGE IV PRN (18:00)
[2021-05-01] MEDS ORDERED: ePHEDrine SULFATE 50 MG/ML AMP IV PRN (18:00)
[2021-05-01] MEDS: HYDROmorphone HCL 2 MG/ML VL IV PRN ×5 (19:00→23:10)
[2021-05-01 19:02] LABS: INR 1.21 (0.9-1.15)
[2021-05-01] MEDS: metroNIDAZOLE 500MG/100ML 100 ML IV SCH (22:25)
[2021-05-02] MEDS: POTASSIUM CHLORIDE 40 MEQ in D5W/LACTATED RINGERS 1,000 ML IV SCH (03:50)
[2021-05-02 04:33] LABS: Basophils # (auto) 0 10 ^3/uL (0-0.2); Basophils % (auto) 0.2 % (0.0-2.0); Eosinophils # (auto) 0 10 ^3/uL (0-0.8); Hematocrit 38.1 % (41.0-53.0); Hemoglobin 12.7 g/dL (13.5-17.5); Lymphocytes # (auto) 0.6 10 ^3/uL (0.4-5.4); Lymphocytes % (auto) 3.2 % (10.0-50.0); Mean Corpuscular Hgb Conc. 33.3 g/dL (32.0-36.0); Mean Corpuscular Volume 83.9 fL (80.0-100.0); Monocytes # (auto) 0.8 10 ^3/uL (0-1.3); Monocytes % (auto) 4.1 % (0.0-12.0); Neutrophils # (auto) 18.1 10 ^3/uL (1.6-8.6); Neutrophils % (auto) 92.5 % (37.0-80.0); Red Blood Cells 4.54 10^6/uL (4.5-5.90); Red Cell Distribution Width 14.8 % (11.8-14.3); White Blood Cell 19.6 10^3/uL (4.4-10.8)
[2021-05-02] MEDS: MORPHINE SULFATE INJECTION 2 MG/ML SYRG IV PRN ×2 (04:35→09:12)
[2021-05-02 04:51] LABS: Albumin 2.3 g/dL (3.4-5.0); BUN/Creatinine Ratio 7.1; Calcium 7.8 mg/dL (8.5-10.1)
[2021-05-02 04:53] LABS: Bilirubin, Total 0.7 mg/dL (0.2-1.0); Total Protein 6.2 g/dL (6.4-8.2)
[2021-05-02] MEDS: metroNIDAZOLE 500MG/100ML 100 ML IV SCH ×3 (06:26→21:13)
[2021-05-02] MEDS: ONDANSETRON HCL 4 MG/2 ML VIAL IV PRN ×3 (06:59→12:58)
[2021-05-02] MEDS ORDERED: HYDROmorphone HCL 2 MG/ML VL ONE (07:30)
[2021-05-02] MEDS ORDERED: HYDROmorphone HCL 2 MG/ML VL IV ONE (08:15)
[2021-05-02] MEDS: levoFLOXacin 500MG 100 ML IV SCH (09:18)
[2021-05-02] MEDS: PANTOPRAZOLE 40 MG/10 ML VIAL INJ IV SCH (09:19)
[2021-05-02 13:00] VITALS: BP 126/85
[2021-05-02] MEDS ORDERED: POTASSIUM CHLORIDE 40 MEQ in D5W/LACTATED RINGERS 1,000 ML IV SCH (13:00)
[2021-05-02] MEDS: MORPHINE SULFATE 4 MG/ML SYR/VIAL IV PRN ×3 (13:23→21:40)
[2021-05-02] MEDS: D5W/ SOD CHL 0.9%/KCL 20MEQ 1,000 ML IV SCH (14:00)
[2021-05-02 17:13] VITALS: BP 104/79
[2021-05-02 22:09] VITALS: BP 124/77
[2021-05-03] MEDS: MORPHINE SULFATE 4 MG/ML SYR/VIAL IV PRN ×5 (01:32→22:06)
[2021-05-03] MEDS: D5W/ SOD CHL 0.9%/KCL 20MEQ 1,000 ML IV SCH ×3 (04:10→20:30)
[2021-05-03 05:11] VITALS: BP 113/83
[2021-05-03] MEDS: metroNIDAZOLE 500MG/100ML 100 ML IV SCH ×3 (05:43→22:06)
[2021-05-03 06:11] LABS: Basophils # (auto) 0 10 ^3/uL (0-0.2); Basophils % (auto) 0.2 % (0.0-2.0); Eosinophils # (auto) 0 10 ^3/uL (0-0.8); Eosinophils % (auto) 0.1 % (0.0-7.0); Hematocrit 26.5 % (41.0-53.0); Hemoglobin 8.9 g/dL (13.5-17.5); Lymphocytes # (auto) 1.8 10 ^3/uL (0.4-5.4); Mean Corpuscular Hemoglobin 28.7 pg (28.0-32.0); Mean Corpuscular Hgb Conc. 33.7 g/dL (32.0-36.0); Mean Corpuscular Volume 85.2 fL (80.0-100.0); Monocytes # (auto) 1.6 10 ^3/uL (0-1.3); Monocytes % (auto) 10.4 % (0.0-12.0); Neutrophils # (auto) 11.6 10 ^3/uL (1.6-8.6); Neutrophils % (auto) 77.3 % (37.0-80.0); Red Blood Cells 3.11 10^6/uL (4.5-5.90); Red Cell Distribution Width 14.9 % (11.8-14.3); White Blood Cell 15.1 10^3/uL (4.4-10.8)
[2021-05-03 06:19] LABS: Potassium 4.4 mmol/L (3.5-5.1)
[2021-05-03 06:23] LABS: BUN/Creatinine Ratio 14.3; Calcium 7.7 mg/dL (8.5-10.1)
[2021-05-03 08:49] VITALS: BP 134/77
[2021-05-03] MEDS: levoFLOXacin 500MG 100 ML IV SCH (09:39)
[2021-05-03] MEDS: PANTOPRAZOLE 40 MG/10 ML VIAL INJ IV SCH (09:39)
[2021-05-03] MEDS: MORPHINE SULFATE INJECTION 2 MG/ML SYRG IV PRN (09:41)
[2021-05-03 13:00] VITALS: BP 120/72
[2021-05-03 16:57] VITALS: BP 128/70
[2021-05-03 22:00] VITALS: BP 127/68
[2021-05-04] VITALS (8 sets, daily range): BP systolic 121–128; BP diastolic 69–73
[2021-05-04] MEDS: MORPHINE SULFATE 4 MG/ML SYR/VIAL IV PRN ×3 (02:19→15:15)
[2021-05-04] MEDS: metroNIDAZOLE 500MG/100ML 100 ML IV SCH ×3 (05:32→22:44)
[2021-05-04 07:09] LABS: Potassium 3.8 mmol/L (3.5-5.1)
[2021-05-04 07:12] LABS: BUN/Creatinine Ratio 14.3
[2021-05-04 07:32] LABS: Basophils # (auto) 0 10 ^3/uL (0-0.2); Basophils % (auto) 0.3 % (0.0-2.0); Eosinophils # (auto) 0 10 ^3/uL (0-0.8); Eosinophils % (auto) 0.2 % (0.0-7.0); Hematocrit 20.1 % (41.0-53.0); Lymphocytes % (auto) 12.1 % (10.0-50.0); Mean Corpuscular Hemoglobin 29.2 pg (28.0-32.0); Mean Corpuscular Hgb Conc. 34.1 g/dL (32.0-36.0); Mean Corpuscular Volume 85.5 fL (80.0-100.0); Monocytes # (auto) 0.8 10 ^3/uL (0-1.3); Monocytes % (auto) 9.4 % (0.0-12.0); Neutrophils # (auto) 6.3 10 ^3/uL (1.6-8.6); Red Blood Cells 2.35 10^6/uL (4.5-5.90); Red Cell Distribution Width 15.5 % (11.8-14.3); White Blood Cell 8.1 10^3/uL (4.4-10.8)
[2021-05-04 07:37] LABS: Hemoglobin 6.9 g/dL (13.5-17.5)
[2021-05-04] MEDS: levoFLOXacin 500MG 100 ML IV SCH (11:06)
[2021-05-04] MEDS: PANTOPRAZOLE 40 MG/10 ML VIAL INJ IV SCH (11:07)
[2021-05-04] MEDS: MORPHINE SULFATE INJECTION 2 MG/ML SYRG IV PRN ×2 (11:08→20:10)
[2021-05-04] MEDS: D5W/ SOD CHL 0.9%/KCL 20MEQ 1,000 ML IV SCH (17:49)
[2021-05-04 19:21] LABS: Basophils # (auto) 0 10 ^3/uL (0-0.2); Basophils % (auto) 0.3 % (0.0-2.0); Eosinophils # (auto) 0 10 ^3/uL (0-0.8); Mean Corpuscular Hgb Conc. 34.6 g/dL (32.0-36.0); Monocytes # (auto) 0.6 10 ^3/uL (0-1.3); Neutrophils # (auto) 5.8 10 ^3/uL (1.6-8.6)
[2021-05-04 19:23] LABS: Eosinophils % (auto) 0.4 % (0.0-7.0); Hematocrit 22.1 % (41.0-53.0); Hemoglobin 7.6 g/dL (13.5-17.5); Lymphocytes # (auto) 0.9 10 ^3/uL (0.4-5.4); Lymphocytes % (auto) 12.3 % (10.0-50.0); Mean Corpuscular Hemoglobin 29.3 pg (28.0-32.0); Mean Corpuscular Volume 84.8 fL (80.0-100.0); Red Cell Distribution Width 14.9 % (11.8-14.3); White Blood Cell 7.3 10^3/uL (4.4-10.8)
[2021-05-05] MEDS: MORPHINE SULFATE INJECTION 2 MG/ML SYRG IV PRN (00:17)
[2021-05-05] MEDS: MORPHINE SULFATE 4 MG/ML SYR/VIAL IV PRN ×5 (04:32→23:03)
[2021-05-05 04:58] VITALS: BP 133/70
[2021-05-05] MEDS: metroNIDAZOLE 500MG/100ML 100 ML IV SCH ×3 (05:53→22:13)
[2021-05-05 07:53] LABS: Basophils # (auto) 0 10 ^3/uL (0-0.2); Eosinophils # (auto) 0 10 ^3/uL (0-0.8); Hemoglobin 7.3 g/dL (13.5-17.5); Mean Corpuscular Hemoglobin 29.7 pg (28.0-32.0); Monocytes # (auto) 0.5 10 ^3/uL (0-1.3); Red Cell Distribution Width 14.9 % (11.8-14.3); White Blood Cell 6.4 10^3/uL (4.4-10.8)
[2021-05-05 07:57] LABS: Potassium 3.7 mmol/L (3.5-5.1)
[2021-05-05 08:03] LABS: BUN/Creatinine Ratio 10.9; Basophils % (auto) 0.3 % (0.0-2.0); Calcium 7.9 mg/dL (8.5-10.1); Eosinophils % (auto) 0.5 % (0.0-7.0); Lymphocytes # (auto) 0.8 10 ^3/uL (0.4-5.4); Lymphocytes % (auto) 11.8 % (10.0-50.0); Mean Corpuscular Hgb Conc. 34.6 g/dL (32.0-36.0); Mean Corpuscular Volume 85.9 fL (80.0-100.0); Monocytes % (auto) 7.8 % (0.0-12.0); Neutrophils # (auto) 5.1 10 ^3/uL (1.6-8.6); Neutrophils % (auto) 79.6 % (37.0-80.0); Nucleated Red Blood Cells % 0.1 %; Red Blood Cells 2.45 10^6/uL (4.5-5.90)
[2021-05-05] MEDS: D5W/ SOD CHL 0.9%/KCL 20MEQ 1,000 ML IV SCH ×2 (08:10→20:57)
[2021-05-05 09:10] VITALS: BP 138/89
[2021-05-05] MEDS: levoFLOXacin 500MG 100 ML IV SCH (10:13)
[2021-05-05] MEDS: PANTOPRAZOLE 40 MG/10 ML VIAL INJ IV SCH (10:13)
[2021-05-05 13:00] VITALS: BP 137/86
[2021-05-05 17:16] VITALS: BP 133/83
[2021-05-05 22:00] VITALS: BP 132/74
[2021-05-06] MEDS: MORPHINE SULFATE 4 MG/ML SYR/VIAL IV PRN ×5 (04:03→23:34)
[2021-05-06 05:00] VITALS: BP 127/76
[2021-05-06] MEDS: metroNIDAZOLE 500MG/100ML 100 ML IV SCH ×3 (05:55→21:34)
[2021-05-06 07:27] LABS: Basophils # (auto) 0 10 ^3/uL (0-0.2); Eosinophils # (auto) 0.1 10 ^3/uL (0-0.8); Lymphocytes # (auto) 0.8 10 ^3/uL (0.4-5.4); Monocytes # (auto) 0.6 10 ^3/uL (0-1.3); White Blood Cell 5.4 10^3/uL (4.4-10.8)
[2021-05-06 07:30] LABS: Basophils % (auto) 0.3 % (0.0-2.0); Eosinophils % (auto) 2.3 % (0.0-7.0); Hematocrit 22.3 % (41.0-53.0); Hemoglobin 7.9 g/dL (13.5-17.5); Lymphocytes % (auto) 14.7 % (10.0-50.0); Mean Corpuscular Hgb Conc. 35.4 g/dL (32.0-36.0); Mean Corpuscular Volume 84.7 fL (80.0-100.0); Monocytes % (auto) 10.8 % (0.0-12.0); Neutrophils # (auto) 3.9 10 ^3/uL (1.6-8.6); Neutrophils % (auto) 71.9 % (37.0-80.0); Nucleated Red Blood Cells % 0.2 %; Red Blood Cells 2.64 10^6/uL (4.5-5.90); Red Cell Distribution Width 14.9 % (11.8-14.3)
[2021-05-06 09:00] VITALS: BP 122/74
[2021-05-06] MEDS: levoFLOXacin 500MG 100 ML IV SCH (09:59)
[2021-05-06] MEDS: PANTOPRAZOLE 40 MG/10 ML VIAL INJ IV SCH (09:59)
[2021-05-06] MEDS: D5W/ SOD CHL 0.9%/KCL 20MEQ 1,000 ML IV SCH (10:00)
[2021-05-06 13:00] VITALS: BP 122/74
[2021-05-06 17:00] VITALS: BP 122/70
[2021-05-06 22:00] VITALS: BP 124/78
[2021-05-07] MEDS: MORPHINE SULFATE 4 MG/ML SYR/VIAL IV PRN ×4 (04:03→16:35)
[2021-05-07] MEDS: D5W/ SOD CHL 0.9%/KCL 20MEQ 1,000 ML IV SCH ×3 (04:11→14:14)
[2021-05-07 05:00] VITALS: BP 125/73
[2021-05-07] MEDS: metroNIDAZOLE 500MG/100ML 100 ML IV SCH ×2 (06:28→14:14)
[2021-05-07 08:50] VITALS: BP 127/81
[2021-05-07] MEDS: levoFLOXacin 500MG 100 ML IV SCH (09:25)
[2021-05-07] MEDS: PANTOPRAZOLE 40 MG/10 ML VIAL INJ IV SCH (09:25)
[2021-05-07 12:30] VITALS: BP 134/80
== END 2021-05-07 16:40 | DRG 330 ==
LOC: ER 12:41 → EDBD 12:41 → TELE 14:06 → TELE-CENTR 05-02 08:45 → CENTRAL 05-02 09:01
PROVIDERS: ADMIT Nurse Practitioner Acute Care; ATTEND Family Medicine
PROC: 0WQF0ZZ Repair Abdominal Wall, Open Approach (ICD-10-PCS; 2021-05-01)
PROC: 30233N1 Transfusion of Nonautologous Red Blood Cells into Peripheral Vein, Percutaneous Approach (ICD-10-PCS; 2021-05-01)
PROC: 0D1B0Z4 Bypass Ileum to Cutaneous, Open Approach (ICD-10-PCS; 2021-05-01)
PROC: 0DBB0ZZ Excision of Ileum, Open Approach (ICD-10-PCS; principal; 2021-05-01 15:00)
DX: K94.19 Other complications of enterostomy (principal); K50.90 Crohn's disease, unspecified, without complications; D62 Acute posthemorrhagic anemia; K43.5 Parastomal hernia without obstruction or gangrene; M81.0 Age-related osteoporosis without current pathological fracture; E87.6 Hypokalemia; Z20.822 Contact with and (suspected) exposure to COVID-19; F32.A Depression, unspecified; F41.9 Anxiety disorder, unspecified; Z59.00 Homelessness unspecified; Z83.3 Family history of diabetes mellitus; Z82.49 Family history of ischemic heart disease and other diseases of the circulatory system; Z88.8 Allergy status to other drugs, medicaments and biological substances; I87.8 Other specified disorders of veins
CPT/HCPCS: 36415; 36430; 71045; 80048; 80053; 83605; 83735; 85025; 85610; 85730; 86850; 86900; 86901; 86920; 87040; 87426; 99291; C9113; G0378; J0696; J1956; J2250; J2405; J3490

== ENCOUNTER 2021-05-12 05:58 | Inpatient (IN) | payer MEDICARE, MEDICAID ==
[~2021-05-12] VITALS: Ht 175.3 cm; Wt 67.3 kg
[2021-05-12] MEDS ORDERED: SODIUM CHLORIDE 0.9% 1,000 ML IV ONE ×2 (07:15)
[2021-05-12 08:15] LABS: Hematocrit 28.4 % (41.0-53.0); Hemoglobin 9.3 g/dL (13.5-17.5); Mean Corpuscular Hemoglobin 28.8 pg (28.0-32.0); Mean Corpuscular Volume 87.4 fL (80.0-100.0); Red Blood Cells 3.24 10^6/uL (4.5-5.90); Red Cell Distribution Width 16.2 % (11.8-14.3)
[2021-05-12 08:17] LABS: INR 1.05 (0.9-1.15); Partial Thromboplastin Time 29.6 sec (23.6-33.0)
[2021-05-12 08:20] LABS: Basophils % (manual) 0 (0.0-2.0); Blast Cells 0; Metamyelocytes % 0; Myelocytes % 0; Promyelocytes % 0; Reactive Lymphocytes 0
[2021-05-12 08:24] LABS: Albumin 2.4 g/dL (3.4-5.0); BUN/Creatinine Ratio 12.7; Calcium 8.3 mg/dL (8.5-10.1); Potassium 4.5 mmol/L (3.5-5.1)
[2021-05-12 08:27] LABS: Bilirubin, Total 0.8 mg/dL (0.2-1.0)
[2021-05-12 08:49] LABS: Band Neutrophils % (manual) 1; Eosinophils % (manual) 2 (0-7); Lymphocytes % (manual) 11 (10.0-50.0); Monocytes % (manual) 8 (0-12)
[2021-05-12] MEDS ORDERED: HYDROcodone-ACET 5/325MG TAB PO ONE (11:30)
[2021-05-12] MEDS ORDERED: ONDANSETRON HCL 4 MG/2 ML VIAL IV ONE (12:00)
[2021-05-12] MEDS ORDERED: HYDROmorphone HCL 2 MG/ML VL IV ONE (12:00)
[2021-05-12] MEDS ORDERED: ONDANSETRON HCL 4 MG/2 ML VIAL IV PRN (13:30)
[2021-05-12] MEDS ORDERED: NITROGLYCERIN 0.4 MG SL TAB SL PRN (13:30)
[2021-05-12] MEDS ORDERED: ACETAMINOPHEN 500 MG TAB PO PRN (13:30)
[2021-05-12] MEDS ORDERED: HYDROcodone-ACET 5/325MG TAB PO PRN ×2 (13:30→21:30)
[2021-05-12] MEDS ORDERED: MORPHINE SULFATE INJECTION 2 MG/ML SYRG IV PRN ×2 (13:30)
[2021-05-12 18:03] VITALS: BP 116/59
[2021-05-12] MEDS ORDERED: METR500T PO (18:33)
[2021-05-12] MEDS ORDERED: LEVO500T31 PO (18:33)
[2021-05-12] MEDS ORDERED: HYDR2TAB58 PO (18:33)
[2021-05-12] MEDS ORDERED: MELATAB7 PO (18:33)
[2021-05-12 22:00] VITALS: BP 122/68
[2021-05-12] MEDS: MORPHINE SULFATE INJECTION 2 MG/ML SYRG IV PRN (23:22)
[2021-05-13 05:00] VITALS: BP 113/69
[2021-05-13] MEDS: MORPHINE SULFATE INJECTION 2 MG/ML SYRG IV PRN ×2 (05:05→11:25)
[2021-05-13 06:07] LABS: Basophils # (auto) 0.1 10 ^3/uL (0-0.2); Basophils % (auto) 0.6 % (0.0-2.0); Eosinophils # (auto) 0.3 10 ^3/uL (0-0.8); Eosinophils % (auto) 4.1 % (0.0-7.0); Hematocrit 27.7 % (41.0-53.0); Hemoglobin 9.2 g/dL (13.5-17.5); Lymphocytes # (auto) 1.4 10 ^3/uL (0.4-5.4); Lymphocytes % (auto) 17.1 % (10.0-50.0); Mean Corpuscular Hemoglobin 29.1 pg (28.0-32.0); Mean Corpuscular Hgb Conc. 33.2 g/dL (32.0-36.0); Mean Corpuscular Volume 87.7 fL (80.0-100.0); Monocytes # (auto) 0.7 10 ^3/uL (0-1.3); Monocytes % (auto) 8.8 % (0.0-12.0); Neutrophils # (auto) 5.7 10 ^3/uL (1.6-8.6); Neutrophils % (auto) 69.4 % (37.0-80.0); Red Blood Cells 3.16 10^6/uL (4.5-5.90); Red Cell Distribution Width 16.4 % (11.8-14.3); White Blood Cell 8.2 10^3/uL (4.4-10.8)
[2021-05-13 09:00] VITALS: BP 117/71
[2021-05-13] MEDS: PANTOPRAZOLE 40 MG TAB PO SCH (09:32)
[2021-05-13 13:00] VITALS: BP 122/77
[2021-05-13] MEDS: HYDROmorphone HCL 2 MG/ML VL IV PRN ×3 (14:12→22:40)
[2021-05-13 17:25] VITALS: BP 137/75
[2021-05-13 22:00] VITALS: BP 125/63
[2021-05-13] MEDS ORDERED: TEMAZEPAM 15 MG CAP PO ONE (23:30)
[2021-05-14] MEDS: HYDROmorphone HCL 2 MG/ML VL IV PRN ×5 (03:42→20:53)
[2021-05-14 05:00] VITALS: BP 111/64
[2021-05-14 09:00] VITALS: BP 117/68
[2021-05-14] MEDS: PANTOPRAZOLE 40 MG TAB PO SCH (09:17)
[2021-05-14 13:00] VITALS: BP 117/68
[2021-05-14 17:00] VITALS: BP 123/70
[2021-05-14 22:00] VITALS: BP 124/65
[2021-05-14] MEDS ORDERED: TEMAZEPAM 15 MG CAP PO ONE (22:45)
[2021-05-14 22:51] LABS: Urine Bacteria NONE SEEN /hpf (None Seen); Urine Blood Negative /uL (Negative); Urine Specific Gravity 1.015 (1.001-1.035); Urine WBC 1 /hpf (0 - 3)
[2021-05-15] MEDS: HYDROmorphone HCL 2 MG/ML VL IV PRN ×5 (00:47→18:44)
[2021-05-15 05:00] VITALS: BP 118/74
[2021-05-15 09:00] VITALS: BP 117/67
[2021-05-15] MEDS: PANTOPRAZOLE 40 MG TAB PO SCH (10:09)
[2021-05-15 13:00] VITALS: BP 124/70
[2021-05-15 17:00] VITALS: BP 124/73
[2021-05-15 17:33] VITALS: BP 128/74
[2021-05-15 19:07] VITALS: BP 122/74
== END 2021-05-15 19:20 | DRG 919 ==
LOC: ER 05:58 → EDBD 05:58 → OVERFLOW 13:30 → WEST WING 17:11
PROVIDERS: ADMIT Nurse Practitioner Acute Care; ATTEND Internal Medicine
DX: L76.22 Postprocedural hemorrhage of skin and subcutaneous tissue following other procedure (principal); E43 Unspecified severe protein-calorie malnutrition; K50.90 Crohn's disease, unspecified, without complications; M81.0 Age-related osteoporosis without current pathological fracture; D64.9 Anemia, unspecified; F32.A Depression, unspecified; F41.9 Anxiety disorder, unspecified; Z20.822 Contact with and (suspected) exposure to COVID-19; F17.210 Nicotine dependence, cigarettes, uncomplicated; Z82.49 Family history of ischemic heart disease and other diseases of the circulatory system; Z88.1 Allergy status to other antibiotic agents; Z72.89 Other problems related to lifestyle; Z90.49 Acquired absence of other specified parts of digestive tract; Z59.00 Homelessness unspecified; Z93.2 Ileostomy status; Z83.3 Family history of diabetes mellitus; Z68.21 Body mass index [BMI] 21.0-21.9, adult
CPT/HCPCS: 36415; 71045; 74176; 80053; 81001; 85007; 85025; 85027; 85610; 85730; 86850; 86900; 86901; 87081; 87426; 96361; 96374; 96375; G0378; J2405; J7042

== ENCOUNTER 2021-05-30 20:40 | Emergency (ER) | payer MEDICARE, MEDICAID ==
[~2021-05-30] VITALS: Ht 172.7 cm; Wt 68.0 kg
[~2021-05-30 20:40] MED LIST changes: -BUSP5TAB51 PO; -HYDR-4833 PO; +HYDR2TAB58 PO; +LEVO500T31 PO; +MELATAB7 PO; -MES400T PO; +METR500T PO; -OMEP20CA74 OR; -PANT40T PO; -PRE5T PO; -ZOLP10TA PO
[2021-05-30 21:09] VITALS: BP 134/74
== END 2021-05-30 21:25 | disposition left against medical advice (07) ==
LOC: EDBD 20:40 → EDUNIT# 20:40 → ER 20:40
DX: R10.30 Lower abdominal pain, unspecified (principal); Z53.21 Procedure and treatment not carried out due to patient leaving prior to being seen by health care provider

== ENCOUNTER 2021-05-31 23:06 | Emergency (ER) | payer MEDICAID, MEDICARE ==
[~2021-05-31] VITALS: Ht 172.7 cm; Wt 68.0 kg
[2021-06-01 00:28] VITALS: BP 132/84
[2021-06-01 01:15] LABS: Basophils # (auto) 0.1 10 ^3/uL (0-0.2); Basophils % (auto) 1.3 % (0.0-2.0); Eosinophils # (auto) 0.1 10 ^3/uL (0-0.8); Eosinophils % (auto) 1.1 % (0.0-7.0); Hematocrit 33.2 % (41.0-53.0); Hemoglobin 10.9 g/dL (13.5-17.5); Lymphocytes # (auto) 1.2 10 ^3/uL (0.4-5.4); Lymphocytes % (auto) 17.6 % (10.0-50.0); Mean Corpuscular Hemoglobin 26.2 pg (28.0-32.0); Mean Corpuscular Hgb Conc. 32.7 g/dL (32.0-36.0); Monocytes # (auto) 0.6 10 ^3/uL (0-1.3); Monocytes % (auto) 8.7 % (0.0-12.0); Neutrophils # (auto) 4.8 10 ^3/uL (1.6-8.6); Neutrophils % (auto) 71.3 % (37.0-80.0); Nucleated Red Blood Cells % 0.1 %; Red Blood Cells 4.15 10^6/uL (4.5-5.90); Red Cell Distribution Width 17.2 % (11.8-14.3); White Blood Cell 6.7 10^3/uL (4.4-10.8)
[2021-06-01 01:36] LABS: Albumin 3.3 g/dL (3.4-5.0); Potassium 3.9 mmol/L (3.5-5.1)
[2021-06-01 01:38] LABS: BUN/Creatinine Ratio 15.6
[2021-06-01 01:45] LABS: Bilirubin, Total 0.6 mg/dL (0.2-1.0); Total Protein 8.4 g/dL (6.4-8.2)
[2021-06-01] MEDS ORDERED: NEOMYCIN-BACITRACIN-POLYM 15GM TOP OINT TOP ONE (09:52)
== END 2021-06-01 12:58 | disposition home or self-care (01) ==
LOC: EDBD 23:06 → ER 23:08
DX: K94.03 Colostomy malfunction (principal); K50.90 Crohn's disease, unspecified, without complications; F60.9 Personality disorder, unspecified; F17.210 Nicotine dependence, cigarettes, uncomplicated; F12.10 Cannabis abuse, uncomplicated; Z59.00 Homelessness unspecified
CPT/HCPCS: 36415; 80053; 83690; 85025

== ENCOUNTER 2021-06-01 12:48 | Emergency (ER) | payer MEDICAID, MEDICARE ==
[~2021-06-01] VITALS: Ht 167.6 cm; Wt 68.0 kg
[2021-06-01 12:54] VITALS: BP 125/81
== END 2021-06-01 12:58 | disposition left against medical advice (07) ==
LOC: ER 12:48 → EDBD 12:48 → ER 12:58
DX: Z93.3 Colostomy status (principal); Z53.21 Procedure and treatment not carried out due to patient leaving prior to being seen by health care provider